=== PATIENT | male | born 1950 | race Caucasian/White ===

== ENCOUNTER 2022-05-01 05:02 | Inpatient (IN) | payer MEDICARE, OTHER ==
[2022-05-01] MEDS ORDERED: Furosemide 40 MG/4 ML VIAL ONE (07:55)
[2022-05-01] MEDS ORDERED: cefTRIAXone\\ROCEPHIN 2 GM VIAL ONE (08:13)
[2022-05-01] MEDS ORDERED: Azithromycin 500 MG VIAL ONE (08:14)
[2022-05-01] MEDS ORDERED: Ondansetron PF 4 MG/2 ML Vial IVP PRN (09:41)
[2022-05-01] MEDS ORDERED: Acetaminophen 325 MG TAB PO PRN (09:41)
[2022-05-01] MEDS ORDERED: Ondansetron ODT 4 MG TAB PO PRN (09:41)
[2022-05-01] MEDS ORDERED: Diltiazem 125 MG in Sodium Chloride 0.9% 100 ML IVPB SCH (09:45)
[2022-05-01] MEDS ORDERED: Benzonatate 100 MG CAP PO PRN (09:46)
[2022-05-01] MEDS ORDERED: Apixaban 5 MG TAB PO SCH (10:00)
[2022-05-01] MEDS ORDERED: predniSONE 20 MG TAB PO SCH (10:00)
[2022-05-01] MEDS ORDERED: Ondansetron PF 4 MG/2 ML Vial ONE (10:37)
[2022-05-01] MEDS ORDERED: predniSONE 20 MG TAB ONE (11:57)
[2022-05-01] MEDS ORDERED: Apixaban 5 MG TAB ONE (11:57)
[2022-05-01] MEDS: Pyridostigmine Bromide IR 60 MG TAB PO SCH ×3 (13:07→21:36)
[2022-05-01] MEDS ORDERED: Furosemide 20 MG/2 ML VIAL ONE (13:40)
[2022-05-01] MEDS ORDERED: FLU VACC QS2022-23(65YR UP)/PF 240 MCG/0.7 ML SYRINGE IM ONE (13:45)
[2022-05-01] MEDS: Furosemide 40 MG/4 ML VIAL SLOW IVP SCH (13:45)
[2022-05-01] MEDS ORDERED: Iopamidol 370 76% 100 ML VIAL ONE (15:34)
[2022-05-01 16:38] VITALS: TEMP 99.5
[2022-05-01] MEDS ORDERED: Furosemide 100 MG/10 ML VIAL SLOW IVP SCH (19:45)
[2022-05-01 20:12] LABS: #Monocytes 1.8 10x3/uL (0.0-1.1); #Neutrophils 11.9 10x3/uL (1.5-8.4); %Basophils 0.3 % (0.0-2.0); %Lymphocytes 3.4 % (18.0-47.0); %Monocytes 12.6 % (0.0-10.0); %Neutrophils 82.7 % (40.0-75.0); Hemoglobin 14.8 g/dL (13.5-17.5); Mean Corpuscular HGB CONC 33.5 g/dL (32.0-36.0); Mean Corpuscular Hemoglobin 31.7 pg (27.0-33.0); Mean Corpuscular Volume 94.6 fl (81.2-95.1); Mean Platelet Volume 9.6 fl (7.4-10.4); Platelet Count 200 10x3/uL (150-450); RBC Distribution Width 13.4 % (11.5-14.5); Red Blood Cell (RBC) Count 4.67 10x6/uL (4.32-5.72); White Blood Cell (WBC) Count 14.4 10x3/uL (3.5-10.5)
[2022-05-01 20:27] LABS: ALV-art Gradient 262.025 mmHg (0-20); Actual Bicarbonate (HCO3a) 37.3 mEq/L (22-28); Base Excess (BEa) 5.3 mEq/L (-2.0 to +3.0); CO2 Tension 98.7 mmHg (35.0-45.0); Calcium, Ionized (arterial) 1.17 mmol/L (1.12-1.30); Carboxyhemoglobin (COHb) 0.5 gm% (0.0-3.0); Hemoglobin (Hb) 14.4 g/dL (14.0-18.0); O2 Tension (PaO2), arterial 327.6 mmHg (> 70.0); Potassium - ABG Lab 4.3 mmol/L (3.70-5.30); Puncture Site RRA
[2022-05-01 20:30] LABS: Troponin I 0.011 ng/mL (< 0.028)
[2022-05-01 20:32] LABS: Anion Gap 14 mmol/L (10-20); BUN (Urea Nitrogen) 17 mg/dL (8.4-25.7); Calc. Creatinine Clearance 88 mL/min (70-130); Calcium 9.1 mg/dL (7.8-10.44); Carbon Dioxide 32 mmol/L (23-31); Chloride 90 mmol/L (98-107); Estimated GFR 96; Glucose 185 mg/dL (83-110); Potassium 4.3 mmol/L (3.5-5.1); Sodium 132 mmol/L (136-145)
[2022-05-01] MEDS: Apixaban 5 MG TAB PO SCH (21:36)
[2022-05-01 22:53] LABS: Actual Bicarbonate (HCO3a) 38.1 mEq/L (22-28); Base Excess (BEa) 8.5 mEq/L (-2.0 to +3.0); Calcium, Ionized (arterial) 1.14 mmol/L (1.12-1.30); Carboxyhemoglobin (COHb) 1.1 gm% (0.0-3.0); Hemoglobin (Hb) 13.9 g/dL (14.0-18.0); O2 Tension (PaO2), arterial 78.3 mmHg (> 70.0); Potassium - ABG Lab 4.3 mmol/L (3.70-5.30); Puncture Site RRA
[2022-05-01 23:52] LABS: Troponin I 0.014 ng/mL (< 0.028)
[2022-05-02] MEDS ORDERED: methylPREDNISolone Sod Succ/PF 125 MG/2 ML VIAL IVP SCH ×2 (03:00→09:00)
[2022-05-02 04:19] LABS: #Monocytes 1.5 10x3/uL (0.0-1.1); %Basophils 0.4 % (0.0-2.0); %Lymphocytes 7.9 % (18.0-47.0); %Monocytes 14.4 % (0.0-10.0); %Neutrophils 76.9 % (40.0-75.0); Hemoglobin 13.5 g/dL (13.5-17.5); Mean Corpuscular HGB CONC 33.3 g/dL (32.0-36.0); Mean Corpuscular Hemoglobin 31.3 pg (27.0-33.0); Mean Corpuscular Volume 94.2 fl (81.2-95.1); Mean Platelet Volume 9.5 fl (7.4-10.4); Platelet Count 187 10x3/uL (150-450); RBC Distribution Width 13.4 % (11.5-14.5); Red Blood Cell (RBC) Count 4.31 10x6/uL (4.32-5.72); White Blood Cell (WBC) Count 10.4 10x3/uL (3.5-10.5)
[2022-05-02 04:28] LABS: BUN (Urea Nitrogen) 17 mg/dL (8.4-25.7); Calc. Creatinine Clearance 98 mL/min (70-130); Estimated GFR 99; Glucose 115 mg/dL (83-110); Magnesium 2.1 mg/dL (1.6-2.6)
[2022-05-02 04:35] LABS: Anion Gap 16 mmol/L (10-20); Carbon Dioxide 37 mmol/L (23-31); Chloride 89 mmol/L (98-107); Potassium 4.2 mmol/L (3.5-5.1); Sodium 138 mmol/L (136-145)
[2022-05-02 05:52] LABS: Actual Bicarbonate (HCO3a) 42.2 mEq/L (22-28); CO2 Tension 69.8 mmHg (35.0-45.0); Calcium, Ionized (arterial) 1.11 mmol/L (1.12-1.30); Carboxyhemoglobin (COHb) 0.9 gm% (0.0-3.0); Hemoglobin (Hb) 13.9 g/dL (14.0-18.0); O2 Tension (PaO2), arterial 98.1 mmHg (> 70.0); Potassium - ABG Lab 4.4 mmol/L (3.70-5.30); Puncture Site RRA
[2022-05-02] MEDS: Furosemide 40 MG/4 ML VIAL SLOW IVP SCH ×2 (05:56→14:36)
[2022-05-02] MEDS ORDERED: predniSONE 20 MG TAB PO SCH (08:00)
[2022-05-02] MEDS ORDERED: Pantoprazole 40 MG VIAL IVP SCH (09:00)
[2022-05-02] MEDS ORDERED: Azithromycin 500 MG in Sodium Chloride 0.9% 250 ML 250 ML IVPB SCH (09:30)
[2022-05-02] MEDS: predniSONE 20 MG TAB PO SCH (09:52)
[2022-05-02] MEDS: Tamsulosin HCl 0.4 MG CAP PO SCH (09:53)
[2022-05-02] MEDS: cefTRIAXone\\ROCEPHIN 1 GM in Sodium Chloride 0.9% 100 ML IVPB SCH (09:53)
[2022-05-02] MEDS: Apixaban 5 MG TAB PO SCH ×2 (09:53→21:00)
[2022-05-02] MEDS: Finasteride 5 MG TAB PO SCH (09:53)
[2022-05-02] MEDS: Pyridostigmine Bromide IR 60 MG TAB PO SCH ×4 (10:50→21:00)
[2022-05-02] MEDS ORDERED: Metoprolol Tartrate 25 MG TAB PO SCH (18:30)
[2022-05-02] MEDS ORDERED: Digoxin 0.5 MG/2 ML AMP SLOW IVP SCH (19:00)
[2022-05-02] MEDS: Metoprolol Tartrate 25 MG TAB PO SCH (21:00)
[2022-05-03 05:10] LABS: Hemoglobin 14.5 g/dL (13.5-17.5); Mean Corpuscular HGB CONC 32.8 g/dL (32.0-36.0); Mean Corpuscular Volume 94.6 fl (81.2-95.1); Mean Platelet Volume 10.6 fl (7.4-10.4); Platelet Count 194 10x3/uL (150-450); RBC Distribution Width 13.4 % (11.5-14.5); Red Blood Cell (RBC) Count 4.67 10x6/uL (4.32-5.72); White Blood Cell (WBC) Count 11.9 10x3/uL (3.5-10.5)
[2022-05-03 05:29] LABS: MDiff Complete? YES
[2022-05-03 05:32] LABS: Band 1 % (5-11); Lymphocytes 11 % (21-51); Monocytes 17 % (0-10); Neutrophil 71 % (42-75)
[2022-05-03 05:34] LABS: Platelet Morphology Comment Appears Adequate; RBC Morphology Normal
[2022-05-03] MEDS: Furosemide 40 MG/4 ML VIAL SLOW IVP SCH ×2 (06:09→13:03)
[2022-05-03 07:33] LABS: BUN (Urea Nitrogen) 20 mg/dL (8.4-25.7); Calc. Creatinine Clearance 80 mL/min (70-130); Calcium 9.9 mg/dL (7.8-10.44); Estimated GFR 95; Glucose 108 mg/dL (83-110); Magnesium 2.4 mg/dL (1.6-2.6)
[2022-05-03] MEDS: Pyridostigmine Bromide IR 60 MG TAB PO SCH ×4 (07:45→21:35)
[2022-05-03 07:51] LABS: Anion Gap 21 mmol/L (10-20); Carbon Dioxide 39 mmol/L (23-31); Chloride 86 mmol/L (98-107); Sodium 141 mmol/L (136-145)
[2022-05-03] MEDS: cefTRIAXone\\ROCEPHIN 1 GM in Sodium Chloride 0.9% 100 ML IVPB SCH (08:44)
[2022-05-03] MEDS: Apixaban 5 MG TAB PO SCH ×2 (08:45→21:28)
[2022-05-03] MEDS: predniSONE 20 MG TAB PO SCH (08:46)
[2022-05-03] MEDS: Tamsulosin HCl 0.4 MG CAP PO SCH (08:46)
[2022-05-03] MEDS: Finasteride 5 MG TAB PO SCH (08:46)
[2022-05-03] MEDS: Metoprolol Tartrate 25 MG TAB PO SCH ×2 (08:46→15:44)
[2022-05-03 08:57] LABS: Actual Bicarbonate (HCO3v) 52 mEq/L (22-28); Base Excess 20.2 mEq/L (-2.0 to +3.0); Chloride (VBG) 85 mmol/L (98-106); Hemoglobin (Hb) 15.7 g/dL (12.6-17.4); Puncture Site Other Site; RapidComm Collect By CBN; Sodium 136.9 mmol/L (133-146); pH (venous) 7.35 (7.32-7.43)
[2022-05-03] MEDS ORDERED: Digoxin 0.5 MG/2 ML AMP SLOW IVP SCH (12:00)
[2022-05-03] MEDS: Latanoprost 0.005% Ophth Soln 2.5 ml Bottle EA EYE SCH (21:28)
[2022-05-03] MEDS: Metoprolol Tartrate 50 MG TAB PO SCH (21:28)
[2022-05-04 04:57] LABS: BUN (Urea Nitrogen) 26 mg/dL (8.4-25.7); Calc. Creatinine Clearance 83 mL/min (70-130); Calcium 9.6 mg/dL (7.8-10.44); Estimated GFR 96; Glucose 89 mg/dL (83-110); Magnesium 2.5 mg/dL (1.6-2.6)
[2022-05-04 05:05] LABS: Anion Gap 19 mmol/L (10-20); Carbon Dioxide 37 mmol/L (23-31); Chloride 89 mmol/L (98-107); Potassium 4.2 mmol/L (3.5-5.1); Sodium 141 mmol/L (136-145)
[2022-05-04 05:07] LABS: Actual Bicarbonate (HCO3v) 50 mEq/L (22-28); Base Excess 18.8 mEq/L (-2.0 to +3.0); Calcium, Ionized (venous) 1.14 mmol/L (1.16-1.32); Chloride (VBG) 88 mmol/L (98-106); Critical Notified By: CP.PH; Hemoglobin (Hb) 17.2 g/dL (12.6-17.4); Potassium (VBG) 3.94 mmol/L (3.70-5.30); Puncture Site Other Site; Sodium 140.1 mmol/L (133-146); pH (venous) 7.39 (7.32-7.43)
[2022-05-04] MEDS: Furosemide 40 MG/4 ML VIAL SLOW IVP SCH ×2 (06:45→09:10)
[2022-05-04] MEDS: Pyridostigmine Bromide IR 60 MG TAB PO SCH ×4 (07:31→20:27)
[2022-05-04] MEDS: Digoxin 0.25 MG TAB PO SCH (07:34)
[2022-05-04] MEDS: Metoprolol Tartrate 50 MG TAB PO SCH ×2 (07:34→20:13)
[2022-05-04 07:50] LABS: Actual Bicarbonate (HCO3v) 40 mEq/L (22-28); Base Excess 11.5 mEq/L (-2.0 to +3.0); Calcium, Ionized (venous) 1.11 mmol/L (1.16-1.32); Chloride (VBG) 90 mmol/L (98-106); Hemoglobin (Hb) 16.6 g/dL (12.6-17.4); Potassium (VBG) 3.96 mmol/L (3.70-5.30); Puncture Site Other Site; RapidComm Collect By CBN; Sodium 136.9 mmol/L (133-146); pH (venous) 7.41 (7.32-7.43)
[2022-05-04] MEDS ORDERED: predniSONE 20 MG TAB PO SCH (09:00)
[2022-05-04] MEDS: Tamsulosin HCl 0.4 MG CAP PO SCH (09:11)
[2022-05-04] MEDS: Finasteride 5 MG TAB PO SCH (09:11)
[2022-05-04] MEDS: Apixaban 5 MG TAB PO SCH ×2 (09:11→20:12)
[2022-05-04] MEDS: Timolol 0.5% Ophth Soln 5 ml Bottle L EYE SCH ×2 (10:52→20:15)
[2022-05-04 10:53] VITALS: BP 118/82
[2022-05-04] MEDS: EYE VITAMIN PO SCH (20:13)
[2022-05-04] MEDS: Latanoprost 0.005% Ophth Soln 2.5 ml Bottle EA EYE SCH (20:15)
[2022-05-05 05:46] VITALS: BMI 20.2
[2022-05-05] MEDS: Metoprolol Tartrate 50 MG TAB PO SCH (08:32)
[2022-05-05] MEDS: Tamsulosin HCl 0.4 MG CAP PO SCH (08:32)
[2022-05-05] MEDS: Furosemide 40 MG/4 ML VIAL SLOW IVP SCH (08:32)
[2022-05-05] MEDS: Apixaban 5 MG TAB PO SCH (08:32)
[2022-05-05] MEDS: Pyridostigmine Bromide IR 60 MG TAB PO SCH (08:32)
[2022-05-05] MEDS: Finasteride 5 MG TAB PO SCH (08:32)
[2022-05-05] MEDS: Timolol 0.5% Ophth Soln 5 ml Bottle L EYE SCH (08:33)
[2022-05-05] MEDS: EYE VITAMIN PO SCH (08:33)
[2022-05-05] MEDS: Digoxin 0.25 MG TAB PO SCH (08:40)
== END 2022-05-05 13:00 | disposition home or self-care (01) | DRG 291 ==
LOC: CSHERS 05:02 → CSHERHOLD 07:11 → CSHTELE 12:31 → CSHICU 20:00
PROVIDERS: ADMIT Family Medicine; ATTEND Family Medicine
DX: I11.0 Hypertensive heart disease with heart failure (principal); G93.41 Metabolic encephalopathy; I50.31 Acute diastolic (congestive) heart failure; J18.9 Pneumonia, unspecified organism; J96.21 Acute and chronic respiratory failure with hypoxia; J96.22 Acute and chronic respiratory failure with hypercapnia; J98.11 Atelectasis; I48.19 Other persistent atrial fibrillation; G70.00 Myasthenia gravis without (acute) exacerbation; N40.0 Benign prostatic hyperplasia without lower urinary tract symptoms; Z20.822 Contact with and (suspected) exposure to COVID-19; I34.0 Nonrheumatic mitral (valve) insufficiency; K21.9 Gastro-esophageal reflux disease without esophagitis; E87.5 Hyperkalemia; Z85.46 Personal history of malignant neoplasm of prostate; Z79.899 Other long term (current) drug therapy; Z79.52 Long term (current) use of systemic steroids; Z90.49 Acquired absence of other specified parts of digestive tract; Z82.49 Family history of ischemic heart disease and other diseases of the circulatory system; Z79.01 Long term (current) use of anticoagulants
CPT/HCPCS: 36415; 36600; 71045; 71275; 80048; 82805; 83605; 83735; 83880; 84145; 84443; 85025; 87807; 93005; 93010; 93306; 94150; 94660; 94760; 96365; 96375; J0456; J0696; J1160; J1940; J2405; J2930; J3490; J7512; J7620; Q9967

== ENCOUNTER 2023-05-28 05:06 | Inpatient (IN) | payer MEDICARE, OTHER ==
[2023-05-28] MEDS ORDERED: Acetaminophen 650 MG Suppository PR PRN ×2 (05:41→05:43)
[2023-05-28] MEDS ORDERED: Glucagon 1 MG/ML KIT IM PRN (05:41)
[2023-05-28] MEDS ORDERED: Dextrose 5% in Water 1,000 ML IV PRN (05:41)
[2023-05-28] MEDS ORDERED: Dextrose 50% Abboject 50 ML SYRINGE SLOW IVP PRN (05:41)
[2023-05-28] MEDS ORDERED: Albuterol 200 PUFF (6.7GM INHALER) INH PRN (05:41)
[2023-05-28] MEDS ORDERED: Benzonatate 100 MG CAP PO PRN (05:41)
[2023-05-28] MEDS ORDERED: Acetaminophen 325 MG TAB PO PRN ×2 (05:41→05:43)
[2023-05-28] MEDS ORDERED: Loperamide HCl 2 MG CAP PO PRN ×2 (05:43)
[2023-05-28] MEDS ORDERED: Bisacodyl 10 MG SUPP PR PRN (05:43)
[2023-05-28] MEDS ORDERED: Bisacodyl 5 MG TAB PO PRN (05:43)
[2023-05-28] MEDS ORDERED: HumaLOG 300 UNITS/3 ML VIAL SC PRN ×2 (05:43)
[2023-05-28] MEDS ORDERED: HYDROcodone/Acetaminophen 5/325 mg Tablet PO PRN (05:43)
[2023-05-28] MEDS ORDERED: Senokot S 8.6-50 MG TAB PO PRN (05:43)
[2023-05-28] MEDS ORDERED: Guaifenesin DM 100-10/5 ML UDCUP PO PRN (05:43)
[2023-05-28] MEDS ORDERED: Ondansetron ODT 4 MG TAB PO PRN (05:43)
[2023-05-28] MEDS ORDERED: Ondansetron PF 4 MG/2 ML Vial IVP PRN (05:43)
[2023-05-28] MEDS ORDERED: Electrolyte Replacement Protocol 1 EACH FS SCH (06:00)
[2023-05-28 07:18] LABS: Phosphorus 3.4 mg/dL (2.3-4.7)
[2023-05-28 07:22] LABS: CRP (Inflammatory) 0.67 mg/dL (= or < 0.5)
[2023-05-28 07:24] LABS: ALT (SGPT) 20 U/L (8-55); AST (SGOT) 20 U/L (5-34); Albumin 4.1 g/dL (3.4-4.8); Alkaline Phosphatase 57 U/L (40-110); Bilirubin, Direct 0.1 mg/dL (0.1-0.3); Bilirubin, Total 0.3 mg/dL (0.2-1.2); Protein, Total 7.1 g/dL (5.8-8.1)
[2023-05-28] MEDS ORDERED: cefTRIAXone (ROCEPHIN) 2 GM VIAL ONE (07:42)
[2023-05-28 08:10] LABS: D-Dimer Test 0.27 mg/L FEU (0.19-0.50); INR-International Normal Ratio 1.2; Prothrombin Time 12.7 sec (9.5-12.1)
[2023-05-28] MEDS: cefTRIAXone\\ROCEPHIN 2 GM in Sodium Chloride 0.9% 100 ML IVPB SCH (08:15)
[2023-05-28] MEDS ORDERED: Dexamethasone 10 MG/ML VIAL ONE (08:52)
[2023-05-28] MEDS ORDERED: Metoprolol Tartrate 25 MG TAB ONE (08:52)
[2023-05-28] MEDS ORDERED: Apixaban 5 MG TAB ONE ×2 (08:53→21:16)
[2023-05-28] MEDS ORDERED: Zinc Sulfate 220 MG CAP ONE (08:54)
[2023-05-28] MEDS ORDERED: Ascorbic Acid 500 mg Chewable Tablet ONE (08:55)
[2023-05-28] MEDS ORDERED: Metoprolol Tartrate 25 MG TAB PO SCH (09:00)
[2023-05-28] MEDS ORDERED: Dexamethasone 6 MG in Sodium Chloride 0.9% 50 ML IVPB SCH (09:00)
[2023-05-28] MEDS ORDERED: Pyridostigmine Bromide IR 60 MG TAB PO SCH (09:00)
[2023-05-28] MEDS: Cholecalciferol (Vitamin D3) 400 UNITS TAB PO SCH (09:15)
[2023-05-28] MEDS: Dexamethasone 20 MG/5 ML VIAL SLOW IVP SCH (09:15)
[2023-05-28] MEDS: Apixaban 5 MG TAB PO SCH ×2 (09:15→21:25)
[2023-05-28] MEDS: Ascorbic Acid 500 mg Chewable Tablet PO SCH (09:15)
[2023-05-28] MEDS: Zinc Sulfate 220 MG CAP PO SCH (09:15)
[2023-05-28] MEDS: Finasteride 5 MG TAB PO SCH (09:29)
[2023-05-28] MEDS: Pantoprazole 40 MG VIAL IVP SCH (09:30)
[2023-05-28 10:26] LABS: #Basophils 0.1 10x3/uL (0.0-0.2); #Eosinphils 0.1 10x3/uL (0.0-0.5); #Monocytes 1.4 10x3/uL (0.0-1.1); #Neutrophils 11.8 10x3/uL (1.5-8.4); %Basophils 0.3 % (0.0-2.0); %Eosinophils 0.8 % (0.0-6.0); %Lymphocytes 7.3 % (18.0-47.0); %Monocytes 9.7 % (0.0-10.0); %Neutrophils 81.5 % (40.0-75.0); Hematocrit 45.2 % (38.8-50.0); Hemoglobin 14.5 g/dL (13.5-17.5); Mean Corpuscular HGB CONC 32.1 g/dL (32.0-36.0); Mean Corpuscular Hemoglobin 31.4 pg (27.0-33.0); Mean Corpuscular Volume 97.8 fl (81.2-95.1); Mean Platelet Volume 10.7 fl (7.4-10.4); Platelet Count 198 10x3/uL (150-450); RBC Distribution Width 14.4 % (11.5-14.5); Red Blood Cell (RBC) Count 4.62 10x6/uL (4.32-5.72); White Blood Cell (WBC) Count 14.5 10x3/uL (3.5-10.5)
[2023-05-28] MEDS ORDERED: Magnesium 2 GM/50 ML(in water) 2 GM in Premix 1 BAG IVPB SCH (11:45)
[2023-05-28] MEDS ORDERED: Magnesium 2 GM/50 ML BAG (IN WATER) ONE (12:12)
[2023-05-28] MEDS ORDERED: REMDESIVIR 200 MG in Sodium Chloride 0.9% 250 ML 210 ML IV SCH (13:00)
[2023-05-28] MEDS: Pyridostigmine Bromide IR 60 MG TAB PO SCH ×2 (16:00→21:25)
[2023-05-28 16:46] LABS: Legionella Urinary Ag Negative (Negative)
[2023-05-28 16:47] LABS: Strep pneumo Urine Ag NEGATIVE (NEGATIVE)
[2023-05-28] MEDS ORDERED: Metoprolol Tartrate 50 MG TAB ONE (20:51)
[2023-05-28] MEDS ORDERED: Tamsulosin HCl 0.4 MG CAP ONE (20:52)
[2023-05-28] MEDS: Metoprolol Tartrate 50 MG TAB PO SCH (21:26)
[2023-05-28] MEDS: Tamsulosin HCl 0.4 MG CAP PO SCH (21:26)
[2023-05-29 00:15] VITALS: BMI 25.7
[2023-05-29] MEDS: Finasteride 5 MG TAB PO SCH (01:02)
[2023-05-29 03:44] LABS: #Basophils 0.1 10x3/uL (0.0-0.2); #Eosinphils 0.1 10x3/uL (0.0-0.5); #Monocytes 1.5 10x3/uL (0.0-1.1); #Neutrophils 12.3 10x3/uL (1.5-8.4); %Basophils 0.4 % (0.0-2.0); %Eosinophils 0.3 % (0.0-6.0); %Lymphocytes 8.1 % (18.0-47.0); %Monocytes 9.6 % (0.0-10.0); Hematocrit 41.1 % (38.8-50.0); Hemoglobin 13.1 g/dL (13.5-17.5); Mean Corpuscular HGB CONC 31.9 g/dL (32.0-36.0); Mean Corpuscular Volume 97.2 fl (81.2-95.1); Mean Platelet Volume 9.9 fl (7.4-10.4); Platelet Count 193 10x3/uL (150-450); RBC Distribution Width 14.2 % (11.5-14.5); Red Blood Cell (RBC) Count 4.23 10x6/uL (4.32-5.72); White Blood Cell (WBC) Count 15.1 10x3/uL (3.5-10.5)
[2023-05-29 03:59] LABS: ALT (SGPT) 22 U/L (8-55); AST (SGOT) 23 U/L (5-34); Albumin 3.8 g/dL (3.4-4.8); Alkaline Phosphatase 54 U/L (40-110); Anion Gap 13 mmol/L (10-20); BUN (Urea Nitrogen) 14 mg/dL (8.4-25.7); Bilirubin, Direct 0.2 mg/dL (0.1-0.3); Bilirubin, Total 0.3 mg/dL (0.2-1.2); Calc. Creatinine Clearance 91 mL/min (70-130); Calcium 8.8 mg/dL (7.8-10.44); Carbon Dioxide 32 mmol/L (23-31); Chloride 102 mmol/L (98-107); Estimated GFR 95; Glucose 106 mg/dL (83-110); Magnesium 2.4 mg/dL (1.6-2.6); Potassium 5.2 mmol/L (3.5-5.1); Protein, Total 6.7 g/dL (5.8-8.1); Sodium 142 mmol/L (136-145)
[2023-05-29] MEDS ORDERED: cefTRIAXone (ROCEPHIN) 2 GM VIAL ONE (07:14)
[2023-05-29] MEDS: cefTRIAXone\\ROCEPHIN 2 GM in Sodium Chloride 0.9% 100 ML IVPB SCH (07:29)
[2023-05-29] MEDS: Pyridostigmine Bromide IR 60 MG TAB PO SCH ×4 (07:30→19:15)
[2023-05-29] MEDS ORDERED: Dexamethasone 10 MG/ML VIAL ONE (08:29)
[2023-05-29] MEDS ORDERED: Metoprolol Tartrate 50 MG TAB ONE ×2 (08:29→20:55)
[2023-05-29] MEDS ORDERED: Pantoprazole 40 MG VIAL ONE (08:30)
[2023-05-29] MEDS ORDERED: Apixaban 5 MG TAB ONE ×2 (08:30→20:55)
[2023-05-29] MEDS ORDERED: Zinc Sulfate 220 MG CAP ONE (08:35)
[2023-05-29] MEDS ORDERED: Ascorbic Acid 500 mg Chewable Tablet ONE (08:35)
[2023-05-29] MEDS: Metoprolol Tartrate 50 MG TAB PO SCH ×2 (09:03→20:53)
[2023-05-29] MEDS: Zinc Sulfate 220 MG CAP PO SCH (09:03)
[2023-05-29] MEDS: Cholecalciferol (Vitamin D3) 400 UNITS TAB PO SCH (09:03)
[2023-05-29] MEDS: Apixaban 5 MG TAB PO SCH ×2 (09:03→20:53)
[2023-05-29] MEDS: Pantoprazole 40 MG VIAL IVP SCH (09:03)
[2023-05-29] MEDS: Ascorbic Acid 500 mg Chewable Tablet PO SCH (09:03)
[2023-05-29] MEDS: Dexamethasone 20 MG/5 ML VIAL SLOW IVP SCH (09:03)
[2023-05-29] MEDS: REMDESIVIR 100 MG in Sodium Chloride 0.9% 250 ML 230 ML IV SCH (14:17)
[2023-05-29] MEDS: Tamsulosin HCl 0.4 MG CAP PO SCH (20:53)
[2023-05-29] MEDS ORDERED: Tamsulosin HCl 0.4 MG CAP ONE (20:57)
[2023-05-30 05:16] LABS: #Basophils 0.1 10x3/uL (0.0-0.2); #Eosinphils 0.1 10x3/uL (0.0-0.5); #Monocytes 1.3 10x3/uL (0.0-1.1); %Basophils 0.4 % (0.0-2.0); %Eosinophils 1.1 % (0.0-6.0); %Lymphocytes 11.1 % (18.0-47.0); %Monocytes 10.9 % (0.0-10.0); %Neutrophils 76.1 % (40.0-75.0); Hematocrit 41.5 % (38.8-50.0); Hemoglobin 13.3 g/dL (13.5-17.5); Mean Corpuscular Volume 96.7 fl (81.2-95.1); Mean Platelet Volume 9.9 fl (7.4-10.4); Platelet Count 180 10x3/uL (150-450); RBC Distribution Width 14.3 % (11.5-14.5); Red Blood Cell (RBC) Count 4.29 10x6/uL (4.32-5.72); White Blood Cell (WBC) Count 11.8 10x3/uL (3.5-10.5)
[2023-05-30 05:28] LABS: ALT (SGPT) 21 U/L (8-55); AST (SGOT) 17 U/L (5-34); Albumin 3.7 g/dL (3.4-4.8); Alkaline Phosphatase 51 U/L (40-110); Bilirubin, Direct 0.2 mg/dL (0.1-0.3); Bilirubin, Total 0.5 mg/dL (0.2-1.2); Magnesium 2.3 mg/dL (1.6-2.6); Protein, Total 6.6 g/dL (5.8-8.1)
[2023-05-30] MEDS ORDERED: cefTRIAXone (ROCEPHIN) 2 GM VIAL ONE (06:07)
[2023-05-30] MEDS: cefTRIAXone\\ROCEPHIN 2 GM in Sodium Chloride 0.9% 100 ML IVPB SCH (06:21)
[2023-05-30] MEDS: Pyridostigmine Bromide IR 60 MG TAB PO SCH ×4 (08:45→23:18)
[2023-05-30] MEDS: Metoprolol Tartrate 50 MG TAB PO SCH (09:30)
[2023-05-30] MEDS: Ascorbic Acid 500 mg Chewable Tablet PO SCH (09:30)
[2023-05-30] MEDS: Apixaban 5 MG TAB PO SCH ×2 (09:30→21:31)
[2023-05-30] MEDS: Finasteride 5 MG TAB PO SCH ×2 (09:30→21:31)
[2023-05-30] MEDS: Zinc Sulfate 220 MG CAP PO SCH (09:30)
[2023-05-30] MEDS: Dexamethasone 20 MG/5 ML VIAL SLOW IVP SCH (09:30)
[2023-05-30] MEDS: Cholecalciferol (Vitamin D3) 400 UNITS TAB PO SCH (09:30)
[2023-05-30] MEDS ORDERED: Apixaban 5 MG TAB ONE (09:36)
[2023-05-30] MEDS ORDERED: Dexamethasone 10 MG/ML VIAL ONE (09:36)
[2023-05-30] MEDS ORDERED: Metoprolol Tartrate 50 MG TAB ONE (09:36)
[2023-05-30] MEDS ORDERED: Ascorbic Acid 500 mg Chewable Tablet ONE (09:41)
[2023-05-30] MEDS: REMDESIVIR 100 MG in Sodium Chloride 0.9% 250 ML 230 ML IV SCH (13:15)
[2023-05-30 15:41] LABS: Anion Gap 12 mmol/L (10-20); BUN (Urea Nitrogen) 16 mg/dL (8.4-25.7); Calc. Creatinine Clearance 92 mL/min (70-130); Calcium 8.4 mg/dL (7.8-10.44); Carbon Dioxide 37 mmol/L (23-31); Chloride 99 mmol/L (98-107); Estimated GFR 96; Glucose 166 mg/dL (83-110); Potassium 4.8 mmol/L (3.5-5.1); Sodium 143 mmol/L (136-145)
[2023-05-30] MEDS: Latanoprost 0.005% Ophth Soln 2.5 ml Bottle EA EYE SCH (21:30)
[2023-05-30] MEDS: Timolol 0.5% Ophth Soln 5 ml Bottle EA EYE SCH (21:30)
[2023-05-30] MEDS: Tamsulosin HCl 0.4 MG CAP PO SCH (21:32)
[2023-05-30] MEDS: Metoprolol Tartrate 25 MG TAB PO SCH (21:32)
[2023-05-31 04:39] LABS: ALT (SGPT) 23 U/L (8-55); AST (SGOT) 17 U/L (5-34); Albumin 3.3 g/dL (3.4-4.8); Alkaline Phosphatase 47 U/L (40-110); Bilirubin, Direct 0.2 mg/dL (0.1-0.3); Bilirubin, Total 0.5 mg/dL (0.2-1.2)
[2023-05-31] MEDS: cefTRIAXone\\ROCEPHIN 2 GM in Sodium Chloride 0.9% 100 ML IVPB SCH (06:28)
[2023-05-31] MEDS: Pyridostigmine Bromide IR 60 MG TAB PO SCH ×4 (06:28→19:48)
[2023-05-31] MEDS: Cholecalciferol 1,000 UNITS (25 MCG) TAB PO SCH (08:47)
[2023-05-31] MEDS: Furosemide 40 MG TAB PO SCH (08:47)
[2023-05-31] MEDS: Apixaban 5 MG TAB PO SCH ×2 (08:48→22:07)
[2023-05-31] MEDS: Ascorbic Acid 500 mg Chewable Tablet PO SCH (08:48)
[2023-05-31] MEDS: Cholecalciferol (Vitamin D3) 400 UNITS TAB PO SCH (08:48)
[2023-05-31] MEDS: Metoprolol Tartrate 25 MG TAB PO SCH ×2 (08:48→22:07)
[2023-05-31] MEDS: Finasteride 5 MG TAB PO SCH ×2 (08:48→22:07)
[2023-05-31] MEDS: Dexamethasone 20 MG/5 ML VIAL SLOW IVP SCH (08:49)
[2023-05-31] MEDS: Zinc Sulfate 220 MG CAP PO SCH (09:06)
[2023-05-31] MEDS: Timolol 0.5% Ophth Soln 5 ml Bottle EA EYE SCH ×2 (09:29→22:08)
[2023-05-31] MEDS: REMDESIVIR 100 MG in Sodium Chloride 0.9% 250 ML 230 ML IV SCH (13:20)
[2023-05-31] MEDS: Latanoprost 0.005% Ophth Soln 2.5 ml Bottle EA EYE SCH (22:07)
[2023-05-31] MEDS: Tamsulosin HCl 0.4 MG CAP PO SCH (22:08)
[2023-06-01] MEDS: cefTRIAXone\\ROCEPHIN 2 GM in Sodium Chloride 0.9% 100 ML IVPB SCH (05:57)
[2023-06-01 06:08] LABS: ALT (SGPT) 29 U/L (8-55); AST (SGOT) 20 U/L (5-34); Albumin 3.5 g/dL (3.4-4.8); Alkaline Phosphatase 55 U/L (40-110); Bilirubin, Direct 0.2 mg/dL (0.1-0.3); Bilirubin, Total 0.5 mg/dL (0.2-1.2); Protein, Total 6.4 g/dL (5.8-8.1)
[2023-06-01] MEDS: Pyridostigmine Bromide IR 60 MG TAB PO SCH ×2 (07:01→11:10)
[2023-06-01] MEDS: Ascorbic Acid 500 mg Chewable Tablet PO SCH (09:29)
[2023-06-01] MEDS: Apixaban 5 MG TAB PO SCH (09:30)
[2023-06-01] MEDS: Metoprolol Tartrate 25 MG TAB PO SCH (09:30)
[2023-06-01] MEDS: Finasteride 5 MG TAB PO SCH (09:30)
[2023-06-01] MEDS: Zinc Sulfate 220 MG CAP PO SCH (09:30)
[2023-06-01] MEDS: Cholecalciferol 1,000 UNITS (25 MCG) TAB PO SCH (09:30)
[2023-06-01] MEDS: Furosemide 40 MG TAB PO SCH (09:30)
[2023-06-01] MEDS: Cholecalciferol (Vitamin D3) 400 UNITS TAB PO SCH (09:30)
[2023-06-01] MEDS: Timolol 0.5% Ophth Soln 5 ml Bottle EA EYE SCH (09:31)
[2023-06-01] MEDS: Dexamethasone 20 MG/5 ML VIAL SLOW IVP SCH (09:31)
[2023-06-01] MEDS: REMDESIVIR 100 MG in Sodium Chloride 0.9% 250 ML 230 ML IV SCH (14:07)
[2023-06-01 14:08] VITALS: BP 113/74; TEMP 98
== END 2023-06-01 17:15 | disposition home or self-care (01) | DRG 177 ==
LOC: CSHERS 05:06 → CSHERHOLD 05:41 → CSHTELE 05-30 11:58
PROVIDERS: ADMIT Family Medicine; ATTEND Family Medicine
PROC: XW033E5 Introduction of Remdesivir Anti-infective into Peripheral Vein, Percutaneous Approach, New Technology Group 5 (ICD-10-PCS; principal; 2023-05-28)
PROC: 3E0333Z Introduction of Anti-inflammatory into Peripheral Vein, Percutaneous Approach (ICD-10-PCS; 2023-05-28)
PROC: 8E0ZXY6 Isolation (ICD-10-PCS; 2023-05-28)
PROC: 5A0945A Assistance with Respiratory Ventilation, 24-96 Consecutive Hours, High Flow/Velocity Cannula (ICD-10-PCS; 2023-05-28)
DX: U07.1 COVID-19 (principal); G70.01 Myasthenia gravis with (acute) exacerbation; J12.82 Pneumonia due to coronavirus disease 2019; J96.01 Acute respiratory failure with hypoxia; I48.20 Chronic atrial fibrillation, unspecified; N40.0 Benign prostatic hyperplasia without lower urinary tract symptoms; I10 Essential (primary) hypertension; Z90.49 Acquired absence of other specified parts of digestive tract; Z98.890 Other specified postprocedural states; Z95.1 Presence of aortocoronary bypass graft; Z79.01 Long term (current) use of anticoagulants; Z79.899 Other long term (current) drug therapy; Z11.52 Encounter for screening for COVID-19
CPT/HCPCS: 36415; 36416; 80048; 80076; 83605; 83735; 84100; 84145; 85025; 85379; 86140; 87070; 87081; 87205; 87449; 87899; 93005; 94640; 94760; 94762; C9113; J0248; J0696; J1100; J3475; J3490; J7050

== ENCOUNTER 2024-02-14 22:47 | Emergency (ER) | payer MEDICARE, OTHER ==
[2024-02-14 23:11] LABS: #Basophils 0.08 10x3/uL (0.0-0.2); #Eosinphils 0.12 10x3/uL (0.0-0.5); #Monocytes 1.25 10x3/uL (0.0-1.1); #Neutrophils 14.83 10x3/uL (1.5-8.4); %Basophils 0.5 % (0.0-2.0); %Eosinophils 0.7 % (0.0-6.0); %Lymphocytes 7.9 % (18.0-47.0); %Neutrophils 83.6 % (40.0-75.0); Hematocrit 49.2 % (38.8-50.0); Hemoglobin 16.3 g/dL (13.5-17.5); Mean Corpuscular HGB CONC 33.1 g/dL (32.0-36.0); Mean Corpuscular Volume 96.7 fL (81.2-95.1); Mean Platelet Volume 10.2 fL (7.4-10.4); Platelet Count 235 10x3/uL (150-450); RBC Distribution Width 13.5 % (11.5-14.5); Red Blood Cell (RBC) Count 5.09 10x6/uL (4.32-5.72); White Blood Cell (WBC) Count 17.8 10x3/uL (3.5-10.5)
[2024-02-14 23:29] LABS: ALT (SGPT) 34 U/L (8-55); AST (SGOT) 29 U/L (5-34); Albumin 4.4 g/dL (3.4-4.8); Alkaline Phosphatase 68 U/L (40-110); Anion Gap 15 mmol/L (10-20); BUN (Urea Nitrogen) 16 mg/dL (8.4-25.7); Bilirubin, Total 0.9 mg/dL (0.2-1.2); Calc. Creatinine Clearance 0 mL/min (70-130); Calcium 9.5 mg/dL (7.8-10.44); Carbon Dioxide 33 mmol/L (23-31); Chloride 97 mmol/L (98-107); Estimated GFR 90; Globulin 3.4 g/dL (2.4-3.5); Glucose 126 mg/dL (83-110); Potassium 3.8 mmol/L (3.5-5.1); Protein, Total 7.8 g/dL (5.8-8.1); Sodium 141 mmol/L (136-145)
[2024-02-14] MEDS ORDERED: Ketorolac Tromethamine 30 MG (1 mL) VIAL ONE (23:40)
[2024-02-14] MEDS ORDERED: Acetaminophen 500 MG TAB ONE (23:40)
[2024-02-14] MEDS ORDERED: methylPREDNISolone Sod Succ/PF 125 MG/2 ML VIAL ONE (23:56)
[2024-02-15 00:04] LABS: Influenza A by NAA DETECTED (NotDetected); Influenza B by NAA Not Detected (NotDetected); SARS-CoV-2 NAA Rapid Test Not Detected (NotDetected)
[2024-02-15] MEDS ORDERED: Oseltamivir 75 MG CAP PO SCH (01:00)
== END 2024-02-15 01:24 | disposition short-term general hospital (02) ==
LOC: CSHERS 22:47
DX: J11.1 Influenza due to unidentified influenza virus with other respiratory manifestations (principal); G70.9 Myoneural disorder, unspecified; I48.91 Unspecified atrial fibrillation; Z79.01 Long term (current) use of anticoagulants; Z79.899 Other long term (current) drug therapy; Z95.1 Presence of aortocoronary bypass graft
CPT/HCPCS: 0240U; 71045; 80053; 83605; 84484; 85025; 87040; 93005; J2919; 36415; 96374; J1885